=== PATIENT | male | born 2000 | race Caucasian/White ===

== ENCOUNTER 2025-10-26 06:22 | Day surgery (SDC) | payer BC, SELFPAY ==
[2025-10-26] VITALS (15 sets, daily range): BP systolic 110–135; BP diastolic 46–74; BMI 23.2
[2025-10-26] MEDS: TYLENOL 1000 MG PO (10:15)
[2025-10-26] MEDS: CELEBREX 200 MG PO (10:15)
[2025-10-26] MEDS: NORMOSOL-R/PLASMALYTE-A 1000 IV (10:22)
[2025-10-26] MEDS: ZOFRAN 4 MG IV (14:52)
[2025-10-26] MEDS: COMPAZINE 5 MG IV (15:30)
--- NOTE | 2025-10-28 08:29 | OR.RPT ---
Operative Report
Operative Report
Operative Report
Patient Name:�Minh Leyva
Medical Record Number:�[id number]
Date of Surgery:�10/26/2025
Surgeon:�Kiran Brenner DPM
Co-surgeon:�Carlo Shen MD
Senior [employer] Coordinator:�Kiran Duncan DPM
Procedure(s):
Left ankle arthroscopy with extensive debridement CPT 11623
Removal of symptomatic hardware, left tibia and fibula CPT 51587 x3
Removal of proximal intramedullary (IM) tibial screw
Removal of 2� distal IM tibial screws, Removal of 2� independent tibial cortical screws
Removal of fibular plate with 4 screws and 2x fibular interfragmentary screws
Preoperative Diagnosis:
Symptomatic retained hardware, left tibia and fibula
Chronic left ankle pain following tibia-fibula fracture ORIF in [facility]
Postoperative Diagnosis:
Same as preoperative
Anesthesia:�General anesthesia with 20ccs of bupivacaine plain
Hemostasis:�Thigh tourniquet which remained inflated to 300mmHg for the entirety of the procedure
Estimated Blood Loss
Minimal (<50 mL)
Specimens
None
Implants Used
None�
Complications
None
Indications for Procedure
The patient is a 24-year-old male who sustained a left tibia-fibula fracture approximately two years ago while traveling in [facility]. The injury required open reduction and internal fixation with placement of an intramedullary tibial edwina,
multiple tibial screws, and a fibular plate with supplemental fixation. Over the past several months, the patient reported persistent left ankle pain, localized prominence over hardware sites, and discomfort with activity. Radiographs demonstrated
well-healed fractures but multiple retained screws and plates associated with the tibia and fibula. After failing conservative management, the patient elected to proceed with left ankle arthroscopy to evaluate for intra-articular pathology and
operative hardware removal. Preoperative planning included leaving one proximal and one distal tibial IM screw in place, with removal of all other symptomatic hardware. The risks, benefits, alternatives, and expected recovery were discussed with the
patient, who elected to proceed.
Description of Procedure
The patient was brought to the operating room and placed supine on the operating table. General anesthesia was induced without complication. A well-padded thigh tourniquet was applied to the left leg and the leg was placed into a thigh shearer. The
left lower extremity was prepped and draped in the usual sterile fashion. The thigh tourniquet was inflated after exsanguination.
Attention was first paid to the left ankle, where standard anteromedial and anterolateral portals were established. The arthroscope was introduced into the ankle joint. A systematic diagnostic arthroscopy was performed. Findings included synovitis
and soft-tissue impingement in the anterior ankle joint. The cartilage surfaces were well preserved without full-thickness defects. A motorized shaver was used to perform extensive synovectomy and debridement of hypertrophic scar tissue. No loose
bodies were identified. The joint was irrigated and cleared before concluding the arthroscopic portion of the procedure.
Attention was then turned to the tibia for hardware removal. Using the previous incisions as guides, the following retained hardware was removed sequentially. Several incisions were made with blunt dissection carried through subcutaneous tissue,
taking care to protect all neurovascular structures.
Proximal IM tibial screw:�Palpated and exposed through a small incision. Removed without difficulty.
Two distal IM tibial screws:�Both screws were accessed under fluoroscopic guidance through prior healed incisions and removed without complication.
Two independent tibial cortical screws:�These were identified over the distal tibial metaphysis, exposed, and removed without incident.
Attention was then paid to the lateral aspect of the ankle where an incision was made over the fibula. Blunt dissection was carried through subcutaneous tissues, with care to protect all neurovascular structures. The fibular plate�was identified and
removed along with four screws. Two interfragmentary fibular screws�were then located and removed without complication. Fluoroscopy confirmed removal of all intended hardware and stability of the tibia and fibula. There were no broken screws, no
stripping of hardware, and no retained fragments. The intramedullary tibial edwina was inspected radiographically and remained intact. As planned preoperatively, one proximal screw and one distal screw were intentionally left in place�to maintain
stability, as the patient was asymptomatic at those sites.
All wounds were irrigated with copious sterile saline. Deep tissues were closed with 2-0 Vicryl. Subcutaneous layers were approximated using 3-0 Vicryl, and skin was closed with interrupted 3-0 nylon sutures. The tourniquet was deflated and his
digits had brisk capillary refill. Sterile dressings were applied. The patient tolerated the procedure well and was awakened and transferred to the recovery room in stable condition. Neurovascular exam of the left lower extremity was intact.
Postoperative Plan
Non-weightbearing for 2 weeks
Ice and elevation for swelling and comfort
Oral analgesics as prescribed
Follow-up in 10�14 days for wound check and suture removal
Gradual return to activity as tolerated after soft tissue healing
Begin gentle ankle [id number] exercises once pain allows
== END 2025-10-26 18:10 | disposition home or self-care (01) ==
LOC: SDS 06:22
PROVIDERS: ATTENDING PHYSICIAN Student in an Organized Health Care Education/Training Program
DX: T84.84XA Pain due to internal orthopedic prosthetic devices, implants and grafts, initial encounter (principal); Z96.662 Presence of left artificial ankle joint
CPT/HCPCS: 29898; 20680; 73610; 76000